=== PATIENT | male | born 1945 | race Caucasian/White ===

== ENCOUNTER 2020-12-11 16:43 | Emergency (ER) | payer MEDICARE, BC ==
[2020-12-11 17:47] VITALS: BP 120/63; PULSE 85
--- NOTE | 2020-12-11 18:17 | CR ---
PROCEDURE INFORMATION: Exam: XR Left Hand Exam date and time: 12/11/2020 5:57 PM Age: 75 years old Clinical indication: Injury or trauma; Other: Laceration to hand; Left TECHNIQUE: Imaging protocol: XR Left hand. Views: 3 or more views. COMPARISON: No relevant prior studies available. FINDINGS: Bones/joints: Suggestion of the transverse fracture of the base of the 5th proximal phalanx. Soft tissues: Soft tissue injury to the base of the 5th finger. Suggestion of nondisplaced transverse fracture of the base of the 5th proximal phalanx. IMPRESSION: Findings suspicious for acute fracture involving the base of the 5th proximal phalanx with associated soft tissue injury. Possible associated soft tissue foreign body.
[2020-12-11] MEDS ORDERED: Diphtheria,Pertussis(Acell),Tetanus Vaccine 0.5 ML Syringe IM ONE (18:18)
--- NOTE | 2020-12-11 18:36 | EDM.PDOC ---
ED HPI GENERAL MEDICAL PROBLEM - General Chief Complaint: Laceration Stated Complaint: LEFT LITTLE FINGER LACERATION Time Seen by Provider: 12/11/20 18:00 Source of Information: Reports: Patient History Limitations: Reports: No Limitations - History of Present Illness INITIAL COMMENTS - FREE TEXT/NARRATIVE: This 75 yo male patient reports to the ED with his due to a left 5th finger injury. The patient reports he was using a table saw when the saw caught the board and pulled his hand into the blade. The patient reports no current pain to the area. Onset: Today Duration: Minutes: Location: Reports: Upper Extremity, Left Quality: Reports: Ache, Dull Severity: Mild Improves with: Reports: None Worsens with: Reports: None Context: Reports: Activity Associated Symptoms: Reports: No Other Symptoms - Related Data Allergies Allergy/AdvReac Type Severity Reaction Status Date / Time simvastatin [From Zocor] Allergy Muscle Verified 10/10/14 07:02 Aches Home Meds: Home Meds Cholecalciferol (Vitamin D3) [Vitamin D3] 400 unit PO DAILY 09/18/14 [History] Metoprolol Tartrate [Lopressor] 25 mg PO BID 09/18/14 [History] Multivitamin with Minerals [Multiple Vitamin] 1 tab PO DAILY 09/18/14 [History] Sildenafil Citrate [Viagra] 25 mg PO PRN 09/18/14 [History] amLODIPine/atorvaSTATin [Amlodipine-Atorvast 10-10 mg] 10 mg PO DAILY 09/18/14 [History] atorvaSTATin [Lipitor] 80 mg PO DAILY 09/18/14 [History] Past Medical History HEENT History: Reports: None Cardiovascular History: Reports: High Cholesterol, Hypertension Other Respiratory History: c-pap Gastrointestinal History: Reports: None Genitourinary History: Reports: None Other Musculoskeletal History: Rt knee swelling Neurological History: Reports: None Psychiatric History: Reports: None Endocrine/Metabolic History: Reports: None Hematologic History: Reports: None Immunologic History: Reports: None Oncologic (Cancer) History: Reports: None Dermatologic History: Reports: None - Infectious Disease History Infectious Disease History: Reports: None - Past Surgical History Head Surgeries/Procedures: Reports: None Social & Family History - Family History Family Medical History: No Pertinent Family History - Tobacco Use Tobacco Use Status *Q: Never Tobacco User Second Hand Smoke Exposure: No - Caffeine Use Caffeine Use: Reports: None - Recreational Drug Use Recreational Drug Use: No ED ROS GENERAL - Review of Systems Review Of Systems: Comprehensive ROS is negative, except as noted in HPI. ED EXAM, SKIN/RASH Exam: See Below Exam Limited By: No Limitations General Appearance: Alert, WD/WN, No Apparent Distress Eye Exam: Bilateral Eye: EOMI, Normal Inspection, PERRL Ears: Normal External Exam, Normal Canal, Hearing Grossly Normal, Normal TMs Nose: Normal Inspection, Normal Mucosa, No Blood Throat/Mouth: Normal Inspection, Normal Lips, Normal Teeth, Normal Gums, Normal Oropharynx, Normal Voice, No Airway Compromise Head: Atraumatic, Normocephalic Neck: Normal Inspection, Supple, Non-Tender, Full Range of Motion Respiratory/Chest: No Respiratory Distress, Lungs Clear, Normal Breath Sounds, No Accessory Muscle Use, Chest Non-Tender Cardiovascular: Normal Peripheral Pulses, Regular Rate, Rhythm, No Edema, No Gallop, No JVD, No Murmur, No Rub GI/Abdominal: Normal Bowel Sounds, Soft, Non-Tender, No Organomegaly, No Distention, No Abnormal Bruit, No Mass (Male) Exam: Deferred Rectal (Males) Exam: Deferred Back Exam: Normal Inspection, Full Range of Motion, NT Extremities: Arm Pain (left 4th and 5th finger laceration near the MCP joint. The laceration extends from the extensor surface of the 5th finger through the proximal 5th finger to the flexor tendons. The patient also has a small cut to the extensor tendon of the 4th digit, but full mobility of that digit. ) Neurological: Alert, Oriented, CN II-XII Intact, Normal Cognition, Normal Gait, Normal Reflexes, No Motor/Sensory Deficits Psychiatric: Normal Affect, Normal Mood Skin: Warm, Dry, Wound/Incision Location, Skin: Upper Extremity, Left Characteristics: Linear Lymphatic: No Adenopathy ED SKIN PROCEDURES - Laceration/Wound Repair Left Hand Appearance: Subcutaneous Distal NVT: Other (The patient had a partial amputation of his left 5th finger with a laceration to the MCP joint to the 4th finger) Anesthetic Type: Local Local Anesthesia - Lidocaine (Xylocaine): 1% Plain Local Anesthetic Volume: 5cc Skin Prep: Chlorhexidine (Hibiciens), Saline Closed with: Sutures Lac/Wound length In cm: 2.5 Suture Size: 4-0 # of Sutures: 9 Suture Type: Prolene, Interrupted, Simple Drain Placement: No Sterile Dressing Applied: Nurse Tetanus Status Addressed: Yes Complications: No - Splinting Left Upper Extremity Splint Site: left hand Pre-Procedure NV Status: Abnormal Post-Procedure NV Status: Abnormal Splint Material: Fiberglass Splint Design: Other (hand and wrist support to keep 5th finger in anatomical position) Applied & Form Fitted By: Provider Provider Post-Splint Application NV Check: Good Position Complications: No Course - Vital Signs Last Recorded V/S: Last Vital Signs Temp 99.1 F 12/11/20 17:41 Pulse 85 12/11/20 17:41 Resp 18 12/11/20 17:41 BP 120/63 12/11/20 17:41 Pulse Ox 100 12/11/20 17:41 - Orders/Labs/Meds Orders: Active Orders 24 hr Category Date Time Status Vaccines to be Administered [RC] PER UNIT ROUTINE Care 12/11/20 18:18 Ordered Meds: Medications Discontinued Medications Generic Name Dose Route Start Last Admin Trade Name Freq PRN Reason Stop Dose Admin Cefazolin Sodium 1 gm 12/11/20 18:49 12/11/20 19:07 Cefazolin 1 Gm Vial IM 12/11/20 18:50 1 gm ONETIME ONE Administration Diphtheria/Tetanus/Acell Pertussis 0.5 ml 12/11/20 18:18 12/11/20 19:08 Diphtheria,Pertussis(Acell),Tetanus Vaccine 0.5 Ml Syringe IM 12/11/20 18:19 0.5 ml .ONCE ONE Administration Sterile Water Confirm 12/11/20 18:57 12/11/20 19:07 Sterile Water For Injection Administered 12/11/20 18:58 2 mls/hr Dose Administration 20 mls @ as directed .ROUTE .STK-MED ONE Lidocaine HCl 30 ml 12/11/20 18:52 12/11/20 19:07 Lidocaine 1% 30 Ml Sdv INJECT 12/11/20 18:53 30 ml ONETIME ONE Administration - Re-Assessments/Exams Free Text/Narrative Re-Assessment/Exam: 12/11/20 19:[address] Bangura (Orthopedic Surgeon with [facility] in [place]). Dr. Bangura accepted the patient for continued evaluation and care. The patient should come to the [facility] ED tomorrow morning by 0[address]. Dr. Bangura will directly admit the patient for care under him. Departure - Departure Time of Disposition: 19:32 Disposition: Home, Self-Care 01 Condition: Fair Clinical Impression: Partial traumatic amputation of left little finger through phalanx Qualifiers: Encounter type: initial encounter Qualified Code(s): S68.627A - Partial traumatic transphalangeal amputation of left little finger, initial encounter Laceration of left hand Qualifiers: Encounter type: initial encounter Foreign body presence: with foreign body Qualified Code(s): S61.422A - Laceration with foreign body of left hand, initial encounter - Discharge Information *PRESCRIPTION DRUG MONITORING PROGRAM REVIEWED*: Not Applicable *COPY OF PRESCRIPTION DRUG MONITORING REPORT IN PATIENT FABIANA: Not Applicable Instructions: Laceration Care, Adult, [id number] Forms: ED Department Discharge Care Plan Goals: The patient was advised of the examination and x-ray results during the visit. The patient's laceration was sutured to close the wound. The patient was advised to rest, and elevate the extremity. The patient should report to the Emergency Department at [facility] by 0800 tomorrow (12/12/20). The patient should not eat or drink anything after midnight. The patient was given a Tetanus injection and an injection of Ancef (antibiotic) during the visit in the ED. If the patient has any additional symptoms or concerns, the patient should either return to the emergency department or visit his primary care facility. Sepsis Event Note (ED) - Evaluation Sepsis Screening Result: No Definite Risk - Focused Exam Vital Signs: Vital Signs Temp Pulse Resp BP Pulse Ox 12/11/20 17:41 99.1 F 85 18 120/63 100 - My Orders Last 24 Hours: My Active Orders 12/11/20 18:18 Vaccines to be Administered [RC] PER UNIT ROUTINE - Assessment/Plan Last 24 Hours: My Active Orders 12/11/20 18:18 Vaccines to be Administered [RC] PER UNIT ROUTINE
[2020-12-11] MEDS ORDERED: ceFAZolin 1 GM Vial IM ONE (18:49)
[2020-12-11] MEDS ORDERED: Lidocaine 1% 30 ML SDV INJECT ONE (18:52)
[2020-12-11] MEDS ORDERED: Water For Injection, Sterile 20 ML ONE (18:57)
== END 2020-12-11 19:45 | disposition home or self-care (01) ==
LOC: DL.ED 16:43
DX: S68.627A Partial traumatic transphalangeal amputation of left little finger, initial encounter (principal); S61.215A Laceration without foreign body of left ring finger without damage to nail, initial encounter; E78.00 Pure hypercholesterolemia, unspecified; I10 Essential (primary) hypertension; Z88.8 Allergy status to other drugs, medicaments and biological substances; Z23 Encounter for immunization; W31.2XXA Contact with powered woodworking and forming machines, initial encounter
CPT/HCPCS: 12001; 29125; 73130-LT; 90471; 90715; 96372; 99283-25; 99284; J0690